=== PATIENT | male | born 1975 | race Caucasian/White ===

== ENCOUNTER 2017-06-01 03:53 | Emergency (ER) | payer SELFPAY ==
[~2017-06-01] VITALS: Ht 177.8 cm; Wt 78.9 kg
[2017-06-01 04:31] LABS: HEMATOCRIT 41.7 % (38.0-50.0); MCH 31.4 PG (29.0-34.0); MCHC 34.5 G/DL (30.0-36.0); MEAN PLAT.VOLUME 10.2 uM^3 (9.0-12.4); PLATELET COUNT 175 K/uL (156-360); RBC DIS.WIDTH-CV 11.4 % (11.8-14.6); RBC DIS.WIDTH-SD 38.4 % (39-53); RED BLOOD COUNT 4.58 M/uL (4.00-5.50); WHITE BLOOD COUNT 4.1 K/uL (4.1-10.2)
[2017-06-01 04:40] LABS: CHLORIDE 105 mEq/L (99-109); POTASSIUM 4.2 mEq/L (3.7-5.4); SODIUM 140 mEq/L (136-147)
[2017-06-01 04:41] LABS: GLUCOSE 108 mg/dL (70-99)
[2017-06-01 04:43] LABS: ANION GAP 12 MEQ/L (2-14)
[2017-06-01 04:45] LABS: GFR ESTIMATE (CALCULATED) > 59 mL/min/
[2017-06-01 04:46] LABS: UREA NITROGEN (BUN) 19 mg/dL (9-23)
[2017-06-01 04:53] LABS: TROP-I INTERPRETATION NEGATIVE; TROPONIN-I < 0.01 ng/mL (0.0-0.30)
[2017-06-01 05:12] LABS: PROTHROMBIN TIME 10.6 SEC (10.2-12.9)
[2017-06-01 05:14] LABS: PTT 24.3 SEC (25-37)
[2017-06-01 05:50] VITALS: BP 133/101
== END 2017-06-01 05:52 | disposition home or self-care (01) ==
LOC: EME 03:53
PROVIDERS: Emergency Medicine
DX: S42.202A Unspecified fracture of upper end of left humerus, initial encounter for closed fracture (principal); R55 Syncope and collapse; W01.0XXA Fall on same level from slipping, tripping and stumbling without subsequent striking against object, initial encounter
CPT/HCPCS: 70450; 71020; 73030; 80048; 83880; 84484; 85027; 85610; 85730; 93005; 99281; 99285